=== PATIENT | male | born 1945 | race Caucasian/White ===

== ENCOUNTER 2020-09-24 20:37 | Emergency (ER) | payer MEDICARE, SELFPAY ==
--- NOTE | ~2020-09-24 | CT_ITS ---
EXAMINATION: CT cervical spine wo con DATE: 09/24/2020 22:25 INDICATION: Neck pain post head injury TECHNIQUE: Computed tomography (CT) of the cervical spine was performed without intravenous contrast. Automated exposure control and iterative reconstruction technique were employed. The dose-length pro duct was 527.96 mGy-cm. COMPARISON: None FINDINGS: Type III odontoid fracture with 6 mm posterior displacement resulting in mild to moderate narrowing o f the central canal. There is straightening of the more caudal cervical spine. Vertebral body heights are normal. No other fractures identified. There is both anterior and posterior spinal fusion at C3- C5. Posterior disc osteophyte complexes at C3-C4 and C4-C5 result in mild to moderate central canal s tenosis. Bulky anterior osteophytes at C5 C6-T1 consistent with diffuse idiopathic skeletal hyperosto sis (DISH). Moderate disc height loss at C5-C6 and mild disc height loss at C2-C3 and C6-C7 through T 1-T2. Moderate to severe osteoarthritis at the remaining unfused cervical facet joints. There is also multilevel bilateral mild to moderate neural foraminal stenosis throughout the cervical spine. 2.8 c m right thyroid nodule. IMPRESSION: 1. 6 mm posterior displacement of a type III odontoid fracture resulting in mild to moderate central canal stenosis. Dr. Horner discussed these findings with Dr. Turner at 11:02 PM. 2. Moderate to severe cervical spondylosis with hypertrophic changes of diffuse idiopathic skeletal h yperostosis (DISH). 3. Indeterminate 2.8 cm right thyroid nodule. Could consider ultrasound-guided thyroid biopsy. Reviewed, dictated and finalized at location [facility]. IMPRESSION: 1. 6 mm posterior displacement of a type III odontoid fracture resulting in mil d to moderate central canal stenosis. Dr. Horner discussed these findings wit h Dr. Turner at 11:02 PM. 2. Moderate to severe cervical spondylosis with hypertrophic changes of diffuse idiopathic skeletal hyperostosis (DISH). 3. Indeterminate 2.8 cm right thyroid nodule. Could consider ultrasound-guided thyroid biopsy.
--- NOTE | ~2020-09-24 | XR_ITS ---
EXAMINATION: XR hand LT min 3V DATE: 09/24/2020 21:44 INDICATION: Pain at the left fifth metacarpophalangeal joint post fall TECHNIQUE: Posteroanterior, oblique and lateral views of the left hand were obtained. COMPARISON: None. FINDINGS: Alignment is normal. No fracture. Polyarticular osteoarthritis, severe at the first carpometacarpal a nd wrist joints, moderate severity at the midcarpal, second metacarpophalangeal and multiple predomin antly distal interphalangeal joints and mild at the triscaphe and remaining metacarpophalangeal and i nterphalangeal joints. Soft tissue swelling dorsal to the heads of the metacarpals. IMPRESSION: 1. 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 No acute osseous abnor mality. Reviewed, dictated and finalized at location [facility]. IMPRESSION: 1. 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 No acute osseous abnormality.
--- NOTE | ~2020-09-24 | CT_ITS ---
EXAMINATION: CT brain wo con DATE: 09/24/2020 22:25 INDICATION: Head injury TECHNIQUE: Computed tomography (CT) of the head was performed without intravenous contrast. Sagittal and coronal reconstructions were performed. The mA was adjusted according to patient size. Iterative reconstruction technique was employed. The dose-length product was 756.67 mGy-cm. COMPARISON: None FINDINGS: Midline frontal scalp hematoma. No calvarial fracture. No acute intracranial hemorrhage, acute infarc tion or abnormal extra axial fluid collection. There is mild scattered white matter hypoattenuation c onsistent with chronic small vessel ischemic disease. Symmetric prominence of the sulci consistent wi th mild age-appropriate diffuse cerebral volume loss. Ventricles are normal and symmetric. No mass/m ass effect. Moderate mucosal thickening in the bilateral ethmoid sinuses. Tiny amount of layering flu id in the right maxillary sinus. There is opacification of the right frontal sinus and partial opacif ication of the left frontal sinus. There appears to be corresponding partial-thickness erosion of the anterior wall of the right frontal sinus suggesting possibility of mucocele. The orbits and mastoid air cells are normal. Intracranial calcified cerebral atherosclerosis is noted. IMPRESSION: 1. No fracture or acute intracranial process. 2. Age-related changes including mild diffuse volume loss and mild scattered white matter hypoattenua tion consistent with chronic small vessel ischemic disease. 3. Sinus disease including possible right frontal sinus mucocele appearing to partially eroded the an terior wall of the sinus. Reviewed, dictated and finalized at location A. IMPRESSION: 1. No fracture or acute intracranial process. 2. Age-related changes including mild diffuse volume loss and mild scattered wh ite matter hypoattenuation consistent with chronic small vessel ischemic diseas e. 3. Sinus disease including possible right frontal sinus mucocele appearing to p artially eroded the anterior wall of the sinus.
[2020-09-24 20:41] VITALS: BP 150/95; PULSE 72; RESP 16; TEMP 36.5; O2SAT 96
--- NOTE | 2020-09-24 21:33 | ED.HEATRA ---
HPI - Head Injury General Chief complaint: Head Injury Stated complaint: fall with head lac Time Seen by Provider: 09/24/20 21:10 Source: patient Mode of arrival: EMS Limitations: no limitations History of Present Illness HPI Narrative: Patient is a 75-year-old complaining of mild head pain, head injury and mild neck pain after he tripped and fell at the [facility] prior to arrival. Patient states that he was walking it was not paying attention and there was an elevated step and tripped hitting his head on the floor. Patient denies any loss of consciousness. Patient states that he was able to get up and walk after the fall. Patient also complaining of left hand pain, mild, dull. Patient denies any chest, abdomen, back, pelvis or any other extremity pain/injury. Related Data Home Medications Medication Instructions Recorded Confirmed Aspir-81 09/24/20 furosemide 09/24/20 09/24/20 lisinopril 09/24/20 metoprolol tartrate 09/24/20 potassium chloride meq PO 09/24/20 Allergies Allergy/AdvReac Type Severity Reaction Status Date / Time No Known Allergies Allergy Unverified 10/12/17 15:10 Review of Systems Review of Systems: All systems reviewed & are unremarkable except as noted in HPI and below Constitutional: Constitutional: Denies body ache(s), Denies chills, Denies excessive sweating, Denies fatigue, Denies fever(s), Denies headache(s), Denies lethargy, Denies malaise, Denies weakness and Denies weight loss Eyes: Eyes: Denies blurry vision, Denies change in vision and Denies loss of vision ENT: Denies dizziness, Denies ear discharge, Denies headache(s), Denies lip swelling, Denies epistaxis, Denies nasal congestion, Denies neck pain, Denies throat swelling and Denies tongue swelling Cardiovascular: Cardiovascular: Denies chest pain, Denies chest pain at rest, Denies chest pain with activity, Denies diaphoresis, Denies rapid heart rate, Denies edema, Denies irregular heart rhythm, Denies lightheadedness, Denies palpitations, Denies dyspnea and Denies dyspnea on exertion Respiratory: Respiratory: Denies chest congestion, Denies cough, Denies hemoptysis, Denies dyspnea and Denies dyspnea on exertion Gastrointestinal: Gastrointestinal: Denies abdominal pain, Denies melena, Denies hematochezia, Denies diarrhea, Denies nausea, Denies vomiting and Denies hematemesis Musculoskeletal: Musculoskeletal: Denies abnormal gait, Denies deformity, Denies limited range of motion, Denies neck pain and Denies numbness Neurologic: Denies Abnormal speech present, Denies abnormal gait, Denies confusion, Denies dizziness, Denies headache(s), Denies focal weakness, Denies loss of vision, Denies numbness, Denies Other visual disturbances, Denies Sensory deficit (Neuro) and Denies weakness Psychiatric: Psychiatric: Denies confusion, Denies depression, Denies auditory hallucinations, Denies homicidal ideation and Denies suicidal ideation Endocrine: Endocrine: Denies cold intolerance, Denies excessive sweating, Denies fatigue, Denies heat intolerance and Denies palpitations Hematologic/Lymphatic: Hematologic/Lymphatic: Denies easy bleeding and Denies easy bruising Allergic/Immunologic: Allergic/Immunologic: Denies lip swelling, Denies throat swelling and Denies tongue swelling PMFSH Comments Past medical history: Coronary artery disease, CABG, hypertension Family history: Negative for coronary disease Social history: Non-smoker, no EtOH or drug use, lives with Exam Const: General: cooperative, healthy appearing, comfortable, no acute distress, well developed, alert and awake; No confusion Orientation/consciousness: oriented to person, oriented to place, oriented to time, patient oriented x3 and No confusion Limitations: no limitations HENMT: Ears: hearing grossly normal bilaterally, TM normal on the right and TM normal on the left General nose exam: Normal external nose present, Normal nares present and No nasal discharge present
[2020-09-24 22:09] VITALS: BP 157/88; PULSE 94; RESP 20; O2SAT 100
[2020-09-24 23:17] VITALS: BP 176/94; PULSE 74; RESP 16; O2SAT 97
--- NOTE | 2020-09-24 23:30 | PC.NURSE ---
Pt report received from previous nurse, Chelsi. Pt presented to ED with after falling forward and hitting head on curb at a baseball game. aand requesting to go to [facility] of [facility]. EDMD aware and speaking with providers at [facility] to determine acceptance. Pt is alert and oriented x4, with stable vitals and is in no obvious distress at this time. Advised to press call button for assistance.
--- NOTE | 2020-09-24 23:47 | PC.NURSE ---
Pt presented to ED post fall at baseball game after tripping on a curb. Pt said to have fallen forward, hitting his head on the ground. Puncture wound that does not require repair noted to forehead; no active bleeding noted. Pt is alert and oriented x4 and resting on cart with c-collar in place and at bedside. Pt denies all pain and discomfort at this time. Also denies nausea, emesis, headache and visual disturbances at this time and states he feels well enough to go home. Pt and aware of pt being transferred to [facility] instead of [facility]. Vitals are stable and in pt in no obvious distress at this time. Pt advised to press call button for assistance. Provided a urinal. Pt continues to request a drink of water and has been advised that he is NPO.
[2020-09-24 23:48] VITALS: BP 157/87; PULSE 78; RESP 21; TEMP 37.2; O2SAT 97
--- NOTE | 2020-09-25 00:06 | PC.NURSE ---
EMS arrived for transport.
[2020-09-25 00:14] VITALS: BP 157/87; PULSE 78; RESP 21; TEMP 37.2; O2SAT 97
[2020-09-25 00:15] VITALS: BP 157/87; PULSE 78; RESP 21; TEMP 37.2; O2SAT 97
== END 2020-09-25 00:18 | disposition short-term general hospital (02) ==
PROVIDERS: Emergency Provider Emergency Medicine
DX: S12.120A Other displaced dens fracture, initial encounter for closed fracture (principal); I25.10 Atherosclerotic heart disease of native coronary artery without angina pectoris; Z95.1 Presence of aortocoronary bypass graft; I10 Essential (primary) hypertension; M47.812 Spondylosis without myelopathy or radiculopathy, cervical region; E04.1 Nontoxic single thyroid nodule; W01.0XXA Fall on same level from slipping, tripping and stumbling without subsequent striking against object, initial encounter
CPT/HCPCS: 70450; 72125; 73130; 99285; L0140

== ENCOUNTER 2021-01-25 15:19 | Emergency (ER) | payer MEDICARE, SELFPAY ==
--- NOTE | ~2021-01-25 | CT_ITS ---
EXAMINATION: CT brain wo con DATE: 01/25/2021 15:45 INDICATION: Patient fell and struck face. Neck pain. Cervical spine fracture 1 month ago. Patient on blood thinners. TECHNIQUE: Computed tomography (CT) of the head was performed without intravenous contrast. The mA wa s adjusted according to patient size. Iterative reconstruction technique was employed. Exam dose: 68 1.00 mGy-cm total exam DLP. COMPARISON: 09/24/2020 CT brain FINDINGS: There is a left frontal scalp laceration no skull fracture is detected. There is complete opacification of the right frontal sinus and patchy bilateral ethmoid air cell opac ification. There is moderate mucoperiosteal thickening of the left sphenoid sinus. The mastoid air cells are normally developed and aerated. No fracture or bone destruction of the cranial vault. Bilateral carotid siphon and supraclinoid internal carotid artery calcifications. Nonspecific diminished attenuation of the cerebral white matter, likely due to chronic small vessel i schemic changes. No intracranial mass lesion or hemorrhage or cerebrovascular accident. No midline shift or mass effec t effect. No subdural or epidural hematoma. There is moderate cerebral and cerebellar volume loss. IMPRESSION: Left frontal scalp laceration; no skull fracture Cerebral atherosclerosis and chronic small vessel ischemic changes of cerebral white matter No acute intracranial finding Reviewed, dictated and finalized at [facility]. Reviewed, dictated and finalized at location A.
--- NOTE | ~2021-01-25 | CT_ITS ---
EXAMINATION: CT facial & cervical spine wo DATE: 01/25/2021 15:46 INDICATION: Fall. Frontal scalp laceration, head and neck injury, neck pain. History of cervical spin e fracture. TECHNIQUE: Computed tomography (CT) of the facial bones and maxillofacial region and cervical spine w as performed without intravenous contrast. Automated exposure control and iterative reconstruction te chnique were employed. Exam dose: 543.03 mGy-cm total exam DLP. COMPARISON: CT cervical spine FINDINGS: Left frontal scalp soft tissue laceration. Complete opacification right frontal sinus. Patchy opacification of ethmoid air cells, mild mucoperio steal thickening of the left sphenoid sinus. Mild mucoperiosteal thickening of right and minimal mucoperiosteal thickening of left maxillary sinus es. The frontozygomatic sutures, orbital rims and [place], nasal bones, zygomatic arches and remainder of t he facial bones are intact, without evidence of fracture. Again noted is an odontoid process fracture, nearly complete reduction of the previously noted 6 mm p osterior displacement on 09/24/2020. There is posterior surgical spinal fusion at C1-2. There is lucency surrounding the right C2 pedicle screw which may be consistent with loosening or infection. There is chronic nonsurgical anterior and posterior C3-5 fusion. There is severe degenerative disc disease and prominent anterior spurring at C5-6, C6-7, C7-T1, T1-2. There is degenerative change at the apophyseal joints and uncovertebral joints. IMPRESSION: No facial fracture Interval posterior surgical fusion at C1 to since 09/24/2020, with nearly complete reduction of previo usly noted 6 mm posterior displacement at C2 odontoid process fracture Lucency surrounding right C2 pedicle screw which may be due to loosening or infection No recent fracture or dislocation Chronic anterior and posterior spinal fusion at C3-5- Severe degenerative disc disease, apophyseal joint and uncovertebral joint spurring at C5-6 through T 1-2 Reviewed, dictated and finalized at [facility]. Reviewed, dictated and finalized at location A. IMPRESSION: No facial fracture Interval posterior surgical fusion at C1 to since 09/24/2020, with nearly comple te reduction of previously noted 6 mm posterior displacement at C2 odontoid pro cess fracture Lucency surrounding right C2 pedicle screw which may be due to loosening or inf ection No recent fracture or dislocation Chronic anterior and posterior spinal fusion at C3-5- Severe degenerative disc disease, apophyseal joint and uncovertebral joint spur ring at C5-6 through T1-2
[2021-01-25 15:21] VITALS: BP 175/82; PULSE 74; RESP 17; TEMP 36.2; O2SAT 96
[2021-01-25 17:00] VITALS: BP 184/71; PULSE 79; RESP 18; TEMP 36.2; O2SAT 99
--- NOTE | 2021-01-25 18:59 | ED.HEATRA ---
HPI - Head Injury General Chief complaint: Head Injury Stated complaint: head injury Time Seen by Provider: 01/25/21 15:33 Source: patient Mode of arrival: ambulatory Limitations: no limitations History of Present Illness HPI Narrative: Patient is a 75-year-old male complaining of a laceration on his face and nose after a car tire he was working on [employer] and he fell and landed on his face. Patient denies any head, neck, chest, back or any extremity pain/injury. Patient states that he was able to get up and ambulate after the fall. Patient was asymptomatic before the event. Related Data Home Medications Medication Instructions Recorded Confirmed Aspir-81 09/24/20 lisinopril 09/24/20 metoprolol tartrate 09/24/20 potassium chloride meq PO 09/24/20 bumetanide 1 mg PO BID 01/25/21 01/25/21 rosuvastatin mg 01/25/21 Allergies Allergy/AdvReac Type Severity Reaction Status Date / Time No Known Allergies Allergy Verified 01/25/21 15:25 Review of Systems Review of Systems: All systems reviewed & are unremarkable except as noted in HPI and below Constitutional: Constitutional: Denies body ache(s), Denies chills, Denies excessive sweating, Denies fatigue, Denies fever(s), Denies headache(s), Denies lethargy, Denies malaise, Denies weakness and Denies weight loss Eyes: Eyes: Denies blurry vision, Denies change in vision and Denies loss of vision ENT: Denies dizziness, Denies ear discharge, Denies headache(s), Denies lip swelling, Denies epistaxis, Denies nasal congestion, Denies neck pain, Denies throat swelling and Denies tongue swelling Cardiovascular: Cardiovascular: Denies chest pain, Denies chest pain at rest, Denies chest pain with activity, Denies diaphoresis, Denies rapid heart rate, Denies edema, Denies irregular heart rhythm, Denies lightheadedness, Denies palpitations, Denies dyspnea and Denies dyspnea on exertion Respiratory: Respiratory: Denies chest congestion, Denies cough, Denies hemoptysis, Denies dyspnea and Denies dyspnea on exertion Gastrointestinal: Gastrointestinal: Denies abdominal pain, Denies melena, Denies hematochezia, Denies diarrhea, Denies nausea, Denies vomiting and Denies hematemesis Musculoskeletal: Musculoskeletal: Denies abnormal gait, Denies deformity, Denies joint swelling, Denies limited range of motion, Denies neck pain and Denies numbness Neurologic: Denies Abnormal speech present, Denies abnormal gait, Denies confusion, Denies dizziness, Denies headache(s), Denies focal weakness, Denies loss of vision, Denies numbness, Denies Other visual disturbances, Denies Sensory deficit (Neuro) and Denies weakness Psychiatric: Psychiatric: Denies confusion, Denies depression, Denies auditory hallucinations, Denies homicidal ideation and Denies suicidal ideation Endocrine: Endocrine: Denies cold intolerance, Denies excessive sweating, Denies fatigue, Denies heat intolerance and Denies palpitations Hematologic/Lymphatic: Hematologic/Lymphatic: Denies easy bleeding and Denies easy bruising Allergic/Immunologic: Allergic/Immunologic: Denies lip swelling, Denies throat swelling and Denies tongue swelling PMFSH Social History Social History Gender identity (if verbalized by the patient): Male Comments Past medical history: Hypertension, hyperlipidemia Past surgical history: C2 fracture repair Social history: Non-smoker no EtOH use Exam Const: General: cooperative, healthy appearing, comfortable, no acute distress, well developed, alert and awake; No confusion Orientation/consciousness: oriented to person, oriented to place, oriented to time, patient oriented x3 and No confusion Limitations: no limitations HENMT: Ears: hearing grossly normal bilaterally, TM normal on the right and TM normal on the left Mouth: Yes Normal oral and palatal mucosa present, Yes lip normal, Yes tongue normal and Yes oropharynx normal Throat: posterior orophar
--- NOTE | 2021-01-25 19:18 | PC.NURSE ---
Addendum entered by Emeka Tran RN 01/25/21 19:22: There was no loss of CMS function distal to the laceration at the base of the finger. Original Note: Left forehead: 4.5 cm x 0.3 cm jagged laceration Bridge of nose: 1 cm well approximated laceration Tip of nose: 5.5 cm x 1 cm laceration Base of left index finger: 1.5 cm x 0.3 cm laceration. These wounds were cleaned with pressure irrigation by normal saline as well as wound cleanser from the pyxis. Oozing bleeding continues from the forehead laceration and tip of nose. All wounds covered with gauze and supplies were in the room for the ED Provider to come in and close the wound.
[2021-01-25] MEDS: AMOXICILLIN/CLAVULANATE K 875-125 MG TAB 1 TABLET PO (20:41)
[2021-01-25 20:52] VITALS: BP 171/89; PULSE 77; RESP 18; TEMP 36.4; O2SAT 99
== END 2021-01-25 20:55 | disposition home or self-care (01) ==
PROVIDERS: Emergency Provider Emergency Medicine
DX: S01.21XA Laceration without foreign body of nose, initial encounter (principal); S01.81XA Laceration without foreign body of other part of head, initial encounter; S00.03XA Contusion of scalp, initial encounter; I10 Essential (primary) hypertension; E78.5 Hyperlipidemia, unspecified; W37.8XXA Explosion and rupture of other pressurized tire, pipe or hose, initial encounter; W18.39XA Other fall on same level, initial encounter
CPT/HCPCS: 12015; 70450; 70486; 72125; 99284; A9270

== ENCOUNTER 2021-02-07 07:05 | Outpatient (CLI) | payer MEDICARE, SELFPAY ==
--- NOTE | ~2021-02-07 | CT_ITS ---
EXAMINATION: CTA chest DATE: 02/07/2021 07:40 INDICATION: Aortic valve replacement and aortoplasty, dilatation of the aorta TECHNIQUE: Computed tomographic angiography (CTA) of the chest was performed with 100 mL Omnipque-350 intravenous contrast. Maximum intensity projection 3D-reconstructions of the aorta and other arterie s were constructed by the technologist on a separate workstation. The dose-length product (DLP) was 1 053.22 mGy-cm. Automated exposure control and iterative reconstruction technique were employed. COMPARISON: 06/06/2015 FINDINGS: There are changes of interval mitral valve surgery and aortic root repair. The aorta measur es 4.3 x 4.1 cm at the sinuses of Valsalva and 4.3 x 4.0 cm at the level of the main pulmonary artery . There is no dissection. Calcified coronary artery atherosclerosis is noted. There is cardiomegaly. There is mild dependent atelectasis. No pleural effusion or pneumothorax is identified. There is warehouse foreman baljit mild mediastinal lymphadenopathy, likely reactive. Cysts of the visualized liver measure up to 2. 1 cm. There are bridging osteophytes at multiple levels in the spine, consistent with diffuse idiopat hic skeletal hyperostosis (DISH). IMPRESSION: 1. Dilated ascending aorta measuring up to 4.3 cm with interval surgical change. No dissection. Reviewed, dictated and finalized at location D. IMPRESSION: 1. Dilated ascending aorta measuring up to 4.3 cm with interval surgical change . No dissection.
[2021-02-07 07:30] LABS: Estimated Glomerular Filt Rate > 60
== END 2021-02-07 07:06 | disposition home or self-care (01) ==
DX: I77.819 Aortic ectasia, unspecified site (principal); Z95.2 Presence of prosthetic heart valve
CPT/HCPCS: 71275; Q9967

== ENCOUNTER 2021-07-17 08:34 | Outpatient (CLI) | payer MEDICARE, SELFPAY ==
--- NOTE | ~2021-07-17 | CT_ITS ---
EXAMINATION: CT cervical spine wo [facility] EXAM DATE: 07/17/2021 09:11 INDICATION: Cervical fusion, odontoid fracture. TECHNIQUE: Spiral CT of the cervical spine was performed without contrast. Axial images were reviewe d. Coronal and sagittal reformatted images cervical spine were also reviewed. The dose-length produc t (DLP) for this examination was 556.31 mGy-cm. The exposure was tailored according to patient size (auto mA exposure control), and iterative reconstruction (ASIR) was used as additional dose reduction technique. Comparison is made to prior examination from 01/25/2021. FINDINGS: There is a subacute odontoid base fracture, odontoid in expected position, some interval h ealing compared to previous examination. This has been stabilized with posterior fusion hardware at C 1-2. There is lucency surrounding the right-sided C2 through, suggesting some amount of loosening. Th ere our large cervical thoracic anteriorly based bridging endplate osteophytes. There is moderate to severe disc disease C3-C6, moderate at C6-7 and C7-T1. Partially fused mid cervical vertebral bodies and facet joints. No acute fracture line is identified. The vertebral bodies are aligned in the AP di mension. Level by level evaluation: C2-C3: Disc does not extend beyond the endplate margin. Uncovertebral joint arthropathy: Mild to moderate. Facet joint arthropathy: Moderate. Neural foraminal stenosis: Mild bilateral. Central canal stenosis: No stenosis. C3-C4: There is mild posterior disc osteophyte complex. Uncovertebral joint arthropathy: Moderate bilateral. Facet joint arthropathy: Severe right, moderate left, but fused. Neural foraminal stenosis: Moderate bilateral. Central canal stenosis: Mild. C4-C5: There is posterior disc osteophyte complex. Uncovertebral joint arthropathy: Mild to moderate bilateral. Facet joint arthropathy: Severe right, moderate left, but fused. Neural foraminal stenosis: Moderate right, mild left. Central canal stenosis: Mild. C5-C6: There is posterior disc osteophyte complex. Uncovertebral joint arthropathy: Moderate to severe left, mild to moderate right. Facet joint arthropathy: Moderate to severe right, moderate left. Neural foraminal stenosis: Moderate left, mild right. Central canal stenosis: Mild. C6-C7: There is a mild diffuse disc bulge. Uncovertebral joint arthropathy: Moderate right, mild left. Facet joint arthropathy: Moderate to severe left, mild to moderate right. Neural foraminal stenosis: Mild bilateral. Central canal stenosis: Mild. C7-T1: Disc does not extend beyond the endplate margin. Uncovertebral joint arthropathy: Mild to moderate bilateral. Facet joint arthropathy: Severe left, moderate right. Neural foraminal stenosis: Moderate to severe left, mild right. Central canal stenosis: No stenosis. IMPRESSION: 1. Intact C1-C2 fusion and continued healing of odontoid base fracture in anatomic position. 2. Some lucency surrounding the right C2 screw, could indicate some amount of loosening. 3. Advanced cervical arthropathy and bulky endplate osteophytosis. Reviewed, dictated and finalized at location G. 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 Intact C1-C2 fusion and continued healing of odontoid base fracture in myrtle omic position. 2. Some lucency surrounding the right C2 screw, could indicate some amount of loosening. 3. Advanced cervical arthropathy and bulky endplate osteophytosis.
== END 2021-07-17 08:35 | disposition home or self-care (01) ==
LOC: ANHIMG 08:37
DX: Z98.1 Arthrodesis status (principal); M12.88 Other specific arthropathies, not elsewhere classified, other specified site; M25.78 Osteophyte, vertebrae
CPT/HCPCS: 72125

== ENCOUNTER 2021-12-23 12:43 | Outpatient (CLI) | payer MEDICARE, SELFPAY ==
--- NOTE | ~2021-12-23 | CT_ITS ---
EXAMINATION: CTA chest DATE: 12/23/2021 13:23 INDICATION: Dilated aortic root TECHNIQUE: Computed tomographic angiography (CTA) of the chest was performed with 100 mL Omnipque-300 intravenous contrast. Maximum intensity projection 3D-reconstructions of the aorta and other arterie s were constructed by the technologist on a separate workstation. The dose-length product (DLP) was 1 057.09 mGy-cm. Automated exposure control and iterative reconstruction technique were employed. COMPARISON: 02/07/2021 FINDINGS: Again noted are changes of mitral valve surgery and aortic root repair. The ascending aorta measures 4.3 cm at the sinuses of Valsalva and 4.2 cm at the level of the main pulmonary artery, not significantly changed since the comparison examination. Cardiomegaly is noted. There is no dissectio n. Dependent atelectasis is noted. No pleural effusion or pneumothorax. There is calcified coronary a rtery atherosclerosis. There is a stable 2.3 cm nodule of the right thyroid lobe. There is chronic mi ld mediastinal lymphadenopathy. Cysts of the liver measure up to 2.1 cm. There are bridging osteophyt es at multiple levels in the spine, consistent with diffuse idiopathic skeletal hyperostosis (DISH). IMPRESSION: 1. Changes of aortic root repair with stable dilation of the ascending aorta measuring up to 4.3 cm. No dissection. Reviewed, dictated and finalized at location B. IMPRESSION: 1. Changes of aortic root repair with stable dilation of the ascending aorta me asuring up to 4.3 cm. No dissection.
[2021-12-23 13:16] LABS: Estimated Glomerular Filt Rate > 60
== END 2021-12-23 12:44 | disposition home or self-care (01) ==
DX: I77.810 Thoracic aortic ectasia (principal); Z98.890 Other specified postprocedural states; Z86.79 Personal history of other diseases of the circulatory system
CPT/HCPCS: 71275; Q9967

== ENCOUNTER 2022-07-17 09:11 | Outpatient (CLI) | payer MEDICARE, SELFPAY ==
[2022-07-17 10:06] LABS: Anion Gap 3 mmol/L (8-16); Blood Urea Nitrogen 14 mg/dL (7-18); Calcium 8.7 mg/dL (8.5-10.1); Carbon Dioxide 28 mmol/L (21-32); Chloride 105 mmol/L (98-108); Estimated Glomerular Filt Rate > 60; Glucose 90 mg/dL (70-99); Osmolality Calculated 282 mOsm/kg (285-295); Potassium 4.3 mmol/L (3.5-5.1); Sodium 136 mmol/L (136-145)
== END 2022-07-17 09:12 | disposition home or self-care (01) ==
LOC: CHSLAB 09:16
DX: I25.10 Atherosclerotic heart disease of native coronary artery without angina pectoris (principal); I10 Essential (primary) hypertension
CPT/HCPCS: 36415; 80048

== ENCOUNTER 2022-11-11 16:11 | Outpatient (CLI) | payer MEDICARE, SELFPAY ==
--- NOTE | ~2022-11-11 | CT_ITS ---
EXAMINATION: CT cervical spine wo con DATE: 11/11/2022 22:15 INDICATION: Neck pain. TECHNIQUE: Computed tomography (CT) of the cervical spine was performed without intravenous contrast. Automated exposure control and iterative reconstruction technique were employed. The dose-length pro duct was 539.82 mGy-cm. COMPARISON: CT cervical spine 07/17/2021 FINDINGS: There is 13 degrees levoscoliosis of cervical spine. There are changes of posterior fusion procedure at C1-C2 with pedicle screws. The odontoid fracture has healed. There is ankylosis of anter ior atlantoaxial joint. Vertebral body heights are normal. There are bridging endplate osteophytes fr om C3 to C5. There is mildly decreased disc height at C4-C5 and C5-C6. The following disc levels are specifically discussed: C2-C3: There is severe bilateral uncovertebral joint osteoarthritis. There is severe bilateral facet joint osteoarthritis. There is mild bilateral neural foraminal stenosis. There is no central canal st enosis. C3-C4: There is ankylosis of the uncovertebral joints with mild hypertrophy. There is ankylosis of th e facet joints with severe right and moderate left hypertrophy. There is mild right and moderate left neural foraminal stenosis. There is mild central canal stenosis. C4-C5: There is ankylosis of the uncovertebral joints with mild hypertrophy. There is ankylosis of th e facet joints with moderate right and mild left hypertrophy. There is mild bilateral neural foramina l stenosis. There is mild central canal stenosis. C5-C6: There is severe bilateral uncovertebral joint osteoarthritis. There is severe right and mild l eft facet joint osteoarthritis. There is mild right and moderate left neural foraminal stenosis. Ther e is mild central canal stenosis. C6-C7: There is severe bilateral uncovertebral joint osteoarthritis. There is severe bilateral facet joint osteoarthritis. There is mild bilateral neural foraminal stenosis. There is mild central canal stenosis. C7-T1: There is mild bilateral uncovertebral joint osteoarthritis. There is severe bilateral facet sadaf int osteoarthritis. There is mild bilateral neural foraminal stenosis. There is no central canal sten osis. IMPRESSION: 1. Healed odontoid fracture. 2. Posterior fusion procedure at C1-C2. 3. Moderate cervical spondylosis. Reviewed, dictated and finalized at location A.
== END 2022-11-11 16:12 | disposition home or self-care (01) ==
LOC: ANHIMG 16:16
PROVIDERS: Visit Provider Neurological Surgery
DX: M47.892 Other spondylosis, cervical region (principal); Z98.1 Arthrodesis status
CPT/HCPCS: 72125

== ENCOUNTER 2022-12-04 11:37 | Outpatient (CLI) | payer MEDICARE, SELFPAY ==
[2022-12-04 11:54] LABS: Basophils Absolute Auto 0.03 K/mm3 (0.00-0.10); Basophils Percent Auto 0.6 % (0.0-1.0); Eosinophils Absolute Auto 0.16 K/mm3 (0.02-0.50); Eosinophils Percent Auto 3.2 % (1.0-6.0); Hematocrit 43.5 % (37.0-46.0); Hemoglobin 14.2 g/dL (12.4-15.3); Immature Granulocyte Absolute 0.01 K/mm3 (0.00-0.00); Immature Granulocyte Percent A 0.2 % (0.0-0.0); Lymphocytes Absolute Auto 1.59 K/mm3 (1.10-4.50); Lymphocytes Percent Auto 32.3 % (18.0-42.0); Mean Corpuscular HGB Conc 32.6 g/dL (32.0-36.0); Mean Corpuscular Hemoglobin 29.3 pg (27.0-31.0); Mean Corpuscular Volume 89.7 fL (78.0-102.0); Mean Platelet Volume 10.5 fl (8.7-11.0); Monocytes Absolute Auto 0.48 K/mm3 (0.10-0.90); Monocytes Percent Auto 9.7 % (2.0-11.0); Neutrophils Absolute Auto 2.7 K/mm3 (1.7-7.2); Platelet Count Result 158 K/mm3 (150-420); Red Blood Count 4.85 M/mm3 (4.70-6.10); Red Cell Distribution Width 13.4 % (11.6-14.4); White Blood Count 4.9 K/mm3 (4.8-10.8)
[2022-12-04 12:08] LABS: Partial Thromboplastin Time 27.2 SEC (23.90-30.70)
[2022-12-04 12:13] LABS: Anion Gap 9 mmol/L (8-16); Blood Urea Nitrogen 15 mg/dL (7-18); Calcium 8.7 mg/dL (8.5-10.1); Carbon Dioxide 25 mmol/L (21-32); Chloride 107 mmol/L (98-108); Estimated Glomerular Filt Rate > 60; Glucose 146 mg/dL (70-99); Osmolality Calculated 295 mOsm/kg (285-295); Potassium 3.9 mmol/L (3.5-5.1); Sodium 141 mmol/L (136-145)
== END 2022-12-04 11:38 | disposition home or self-care (01) ==
LOC: CHSLAB 11:41
PROVIDERS: Visit Provider Neurological Surgery
DX: Z01.818 Encounter for other preprocedural examination (principal)
CPT/HCPCS: 36415; 80048; 85025; 85610; 85730

== ENCOUNTER 2023-01-19 14:40 | Outpatient (RCR) | payer MEDICARE, SELFPAY ==
--- NOTE | 2023-01-19 15:31 | PTOPEVAL1 ---
Assessment and note entered by Jacob Colon Evaluation Information Assessment Status Evaluation Diagnosis s/p cervical fusion, hardware removal Onset 12/25/22 Subjective Information Pt. reports that he had hardware removed from a past fusion. He states that his doctor said the hardware was hindering mobility and decided to remove the hardware. He reports only mild improvement in his described c-spine rotation mobility since removing the hardware. He states that his biggest complication is looking over the shoulders. He denies pain at rest, but only noted with turning the head. He states that he has no trouble with sleeping at night. He reports that his goal is to improve his neck mobility. Reported Pain Level Pain Score 0: Self Report Assessment PT Clinical Summary Pt. is a 77 year old male who enters the clinic with neck pain post fusion. He presents with impaired postural awareness, impaired c-spine ROM and pain on this date. Continued skilled PT is indicated in order to improve these areas to allow for improved mobility with IADL's. Plan of Care Interventions Electrical Stimulation,Hot Pack/Cold Pack,Manual Therapy,Neuro Re-education,Patient/Caregiver Educati,Therapeutic Activities,Therapeutic Exercise PT Services Indicated Yes Treatment Frequency and 2x/week x 10 visits Duration These treatments will address the objective and functional deficits as defined above. The patient will be advanced safely and appropriately in order for the patient to progress towards his/her prior level of function. Additional exercises will be introduced and as well as a comprehensive home exercise program upon discharge, if needed, ?to ensure carryover of functional gains achieved in the clinic. This treatment plan has been reviewed and agreement upon by the patient.
--- NOTE | 2023-01-19 15:32 | OPREHPOC ---
Outpatient Therapy Plan of Care This is a Multidisciplinary Plan of Care that may contain components documented by all disciplines (PT, OT, and ST.) PT Problem 1 PT Problem #1 Knowledge Deficit PT Goal 1 Goal Pt. will be independent with a HEP addressing mobility and postural awareness. Target Visit 2 PT Problem 2 PT Problem #2 Impaired Range of Motion PT Goal 1 Goal -Pt. will demonstrate 50 degrees or greater of bilateral c-spine rotation to improve visual field with activities like driving -Pt. will demonstrate 25 degrees bilateral c-spine lateral flexion Target Visit 10 PT Problem 3 PT Problem #3 Pain PT Goal 1 Goal Pt. will report 0/10 pain with all activitites. Target Visit 10
--- NOTE | 2023-02-23 08:06 | PTOPDC ---
Assessment and note entered by Suzette Vasquez, PT Evaluation Information Assessment Status Discharge Diagnosis s/p cervical fusion hardware removal Onset 12/25/22 Subjective Information Denver Odom reports his neck is still stiff and he continues to note difficulty turning his head. He notes the pain he had before has resolved he just can't turn his head. The only daily activity he has difficulty with is occasionally with concentration. Reported Pain Level Pain Score 0: Self Report Assessment PT Clinical Summary Denver Odom has completed 10 skilled PT visits following surgery on 12/25/22 for removal of hardware from a previous cervical fusion. He is reporting ongoing stiffness in his neck however, he has had reduced pain. He objectively demonstrates improved cervical AROM by a 2-6 degrees in all planes as well as resolved tenderness. He continues to have decreaesed cervical AROM but progress is limited by the nature of his condition in addition to arthritic changes. He will be discharged to an independent home exercise program. Plan of Care PT Services Indicated No
--- NOTE | 2023-02-23 08:06 | OPREHPOC ---
Outpatient Therapy Plan of Care This is a Multidisciplinary Plan of Care that may contain components documented by all disciplines (PT, OT, and ST.) PT Problem 1 PT Problem #1 Knowledge Deficit PT Goal 1 Goal Pt. will be independent with a HEP addressing mobility and postural awareness. Target Visit 2 Progress Met PT Problem 2 PT Problem #2 Impaired Range of Motion PT Goal 1 Goal -Pt. will demonstrate 50 degrees or greater of bilateral c-spine rotation to improve visual field with activities like driving -Pt. will demonstrate 25 degrees bilateral c-spine lateral flexion Target Visit 10 Progress Not Met PT Problem 3 PT Problem #3 Pain PT Goal 1 Goal Pt. will report 0/10 pain with all activitites. Target Visit 10 Progress Met
== END 2023-02-23 15:23 | disposition home or self-care (01) ==
LOC: CHSPT 14:40
PROVIDERS: Visit Provider Neurological Surgery
DX: Z98.1 Arthrodesis status (principal)
CPT/HCPCS: 97014; 97110; 97140; 97161; G0283

== ENCOUNTER 2023-03-15 14:43 | Outpatient (CLI) | payer MEDICARE, SELFPAY ==
--- NOTE | 2023-03-15 14:48 | ECHO_ITS ---
Patient Info Name: Denver Odom Age: 77 years : 1945 Gender: Male Ht: 73 in Wt: 300 lbs BSA: 2.70 m2 HR: 63 bpm BP: 156 / 75 mmHg Technical Quality: Good Exam Date: 03/15/2023 2:39 PM Exam Location: [facility] Patient Status: Outpatient Admit Date: 03/15/2023 Staff Ordering Physician: Chloe Metzger Log Operations Coordinator: Callie Mejia RDCS Attending Provider: Chloe Metzger Exam Type: CA echo doppler color flow Study Info Indications - aortic root anurysm Complete two-dimensional, color flow and Doppler transthoracic echocardiogram is performed. Summary 1. Complete two-dimensional, color flow and Doppler transthoracic echocardiogram is performed. 2. Left ventricular chamber dimension is normal. 3. Basal inferior wall is akinetic. 4. Left ventricular systolic function is normal, estimated at 55-60%. 5. The left ventricular diastolic function is abnormal. 6. E/e' 20 is elevated. 7. Left atrial chamber dimension is moderately enlarged. 8. There is moderate aortic valve sclerosis. 9. There is mild aortic valve regurgitation. 10. The mitral valve has moderately calcified annulus. 11. There is mild mitral valve regurgitation. 12. There is mild tricuspid valve regurgitation. 13. No pulmonary hypertension, estimated pulmonary arterial systolic pressure is 32 mmHg. 14. There is trace pulmonic regurgitation. 15. The prox ascending aorta size is borderline dilated at 4.0 cm. Left Ventricle E/e' 20 is elevated. Basal inferior wall is akinetic. Left ventricular chamber dimension is normal. Left ventricular systolic function is normal, estimated at 55-60%. There is moderate concentric increased left ventricular wall thickness. The left ventricular diastolic function is abnormal. Right Ventricle Right ventricular systolic function is normal and with normal TAPSE 3.4 cm. Right ventricular chamber dimension is normal. Left Atria Left atrial chamber dimension is moderately enlarged. Right Atria Right atrial chamber dimension is normal. Aortic Valve The aortic valve is trileaflet. There is moderate aortic valve sclerosis. There is no aortic valve stenosis. There is mild aortic valve regurgitation. Pulmonic Valve There is trace pulmonic regurgitation. Mitral Valve The mitral valve has moderately calcified annulus. There is no mitral valve stenosis. There is mild mitral valve regurgitation. Tricuspid Valve There is mild tricuspid valve regurgitation. No pulmonary hypertension, estimated pulmonary arterial systolic pressure is 32 mmHg. Pericardium/Pleural There is no pericardial effusion. Inferior Vena Cava Normal inferior vena cava with >50% collapse upon inspiration consistent with normal right atrial pressure, 5 mmHg. Aorta The prox ascending aorta size is borderline dilated at 4.0 cm. Left Ventricular Outflow Tract Name Value Normal LVOT 2D LVOT Diameter 3.0 cm LVOT Doppler LVOT Peak Velocity 91 cm/s LVOT Peak Gradient 3 mmHg LVOT Mean Gradient 2 mmHg LVOT VTI 27 cm LVOT VTI/AV VTI Ratio 0.6 LVOT Stroke Volume
== END 2023-03-15 14:44 | disposition home or self-care (01) ==
LOC: CHSIMG 14:44
DX: I71.21 Aneurysm of the ascending aorta, without rupture (principal); I08.3 Combined rheumatic disorders of mitral, aortic and tricuspid valves
CPT/HCPCS: 93306

== ENCOUNTER 2024-01-10 14:35 | Outpatient (CLI) | payer MEDICARE, SELFPAY ==
--- NOTE | 2024-01-10 | ECHO_ITS ---
Patient Info Name: Denver Odom Age: 78 years : 1945 Gender: Male Ht: 75 in Wt: 300 lbs BSA: 2.73 m2 HR: 65 bpm BP: 154 / 92 mmHg Heart Rhythm: Sinus Rhythm Technical Quality: Good Exam Date: 01/10/2024 2:59 PM Exam Location: Echo [facility] Patient Status: Outpatient Admit Date: 01/10/2024 Staff Ordering Physician: Kameron, Jacob ARANDA Collection Correspondent: Callie Mejia RDCS Attending Provider: ASUNCIONCATHIE Exam Type: CA echo doppler color flow Study Info Indications - Aortic RA Complete two-dimensional, color flow and Doppler transthoracic echocardiogram is performed. Summary 1. Complete two-dimensional, color flow and Doppler transthoracic echocardiogram is performed. 2. Left ventricular chamber dimension is normal. 3. Left ventricular systolic function is normal, estimated at 55-60%. 4. There is moderate concentric increased left ventricular wall thickness. 5. The left ventricular diastolic function is abnormal. 6. E/e' 16 is elevated. 7. Left atrial chamber dimension is mildly enlarged. 8. There is moderate aortic valve sclerosis. 9. There is mild aortic valve stenosis with a peak velocity of 175 cm/s, mean gradient of 8 mmHg, and aortic valve area of 1.8 cm2. 10. There is mild to moderate aortic valve regurgitation. 11. The mitral valve has mildly calcified annulus. 12. There is trace tricuspid valve regurgitation. 13. No pulmonary hypertension, estimated pulmonary arterial systolic pressure is 39 mmHg. 14. There is trace pulmonic regurgitation. 15. The aortic root size at the sinus of Valsalva is mildly dilated at 4.2 cm. Left Ventricle E/e' 16 is elevated. Left ventricular chamber dimension is normal. Left ventricular systolic function is normal, estimated at 55-60%. There is moderate concentric increased left ventricular wall thickness. The left ventricular diastolic function is abnormal. Right Ventricle Right ventricular systolic function is normal and with normal TAPSE 2.3 cm. Right ventricular chamber dimension is normal. Left Atria Left atrial chamber dimension is mildly enlarged. Right Atria Right atrial chamber dimension is normal. Aortic Valve The aortic valve is trileaflet. There is moderate aortic valve sclerosis. There is mild aortic valve stenosis with a peak velocity of 175 cm/s, mean gradient of 8 mmHg, and aortic valve area of 1.8 cm2. There is mild to moderate aortic valve regurgitation. Pulmonic Valve There is trace pulmonic regurgitation. Mitral Valve The mitral valve has mildly calcified annulus. There is no mitral valve stenosis. There is no mitral valve regurgitation. Tricuspid Valve There is trace tricuspid valve regurgitation. No pulmonary hypertension, estimated pulmonary arterial systolic pressure is 39 mmHg. Pericardium/Pleural There is no pericardial effusion. Inferior Vena Cava Normal inferior vena cava with >50% collapse upon inspiration consistent with normal right atrial pressure, 5 mmHg. Aorta The aortic root size at the sinus of Valsalva is mildly dilated at 4.2 cm. The prox ascending aorta size is normal. Left Ventricular Outflow Tract Name Value Normal LVOT 2D LVOT Diameter 2.2 cm LVOT Doppler LVOT Peak Gradient
== END 2024-01-10 14:36 | disposition home or self-care (01) ==
LOC: ANHCARD 14:36
DX: I71.21 Aneurysm of the ascending aorta, without rupture (principal); I51.89 Other ill-defined heart diseases; I35.8 Other nonrheumatic aortic valve disorders; I35.1 Nonrheumatic aortic (valve) insufficiency; I34.81 Nonrheumatic mitral (valve) annulus calcification
CPT/HCPCS: 93306